=== PATIENT | male | born 1950 | race Caucasian/White ===

== ENCOUNTER 2017-04-15 16:16 | Emergency (ER) | payer MEDICARE, BC ==
[~2017-04-15 16:16] MED LIST: *UNABLE1; AT25 PO; ATARAX50B PO; ATV1 PO; B1100 PO; BEN25 PO; CAT1 PO; CHOLECALCIFEROL; COLCH6 PO; CONSTULOSE PO; D 5000 PO; DOX10 PO; DOXEPIN; DURICEF PO; FLOMAX4 PO; HYDROXYZINE; K500 PO; KLOR-CON 1010 MEQ PO; KLOR-CON M2020 MEQ PO; L10 PO; L20 PO; LACT30UDL PO; LACTULOSE; LEVOTHYROXIN50 MCG PO; LORAZEPAM; MAGNESIUM OXIDE; MAGOX4 PO; NAP500 PO; OMEPRAZOLE; PRILO PO; PRILOSEC40 MG PO; PRIN10 PO; SEROQUEL25 PO; SEROQUEL400 MG PO; SYN.05 PO; THIAMINE; TRAZ100 PO; TRAZODONE150 MG PO; TRIAMCINOLONE O80 GM TOP; VIST50 PO; VITAMIN B-1; VITAMIN B-1 100MG PO; Z100 PO; ZESTRIL20 MG PO; ZONEGRAN PO
[2017-04-15 17:38] LABS: BASOPHILS 0.3 %; BASOPHILS ABSOLUTE 0.01 10/3/uL (0.0-0.16); EOSINOPHILS 6.1 %; EOSINOPHILS ABSOLUTE 0.19 10/3/uL (0.0-0.53); HEMOGLOBIN 12.7 g/dL (13.6-17.8); IMMATURE GRANULOCYTES ABSOLUTE 0.03 10/3/uL (0.0-0.11); LYMPHOCYTES 29.2 %; LYMPHOCYTES ABSOLUTE 0.91 10/3/uL (0.67-4.30); MEAN CORPUSCULAR HEMOGLOB 31.7 pg (26.0-34.0); MEAN PLATELET VOLUME 8.9 fL (9.2-13.0); MONOCYTES 9.3 %; MONOCYTES ABSOLUTE 0.29 10/3/uL (0.21-1.20); NEUTROPHILS 54.1 %; NEUTROPHILS ABSOLUTE 1.69 10/3/uL (2.02-8.40); RBC DISTRIBUTION WIDTH 13.8 % (12.0-16.0); RED CELL COUNT 4.01 10/6/uL (4.7-6.1)
[2017-04-15 17:45] LABS: INTERNATIONAL NORMAL RATI 1.3 UNITS (-); PARTIAL THROMBO TIME 28.7 SEC (22.5-37.2); PROTIME (NOT ORD) 15.6 SEC (12.0-14.5)
[2017-04-15 17:46] LABS: ER CBC TAT 0 Hrs 15 Mins; HEMATOCRIT 35.3 % (40.0-51.0); PLATELET COUNT 57 10/3/uL (150-400); WHITE BLOOD CELLS 3.1 10/3/uL (4.5-10.5)
[2017-04-15 17:48] LABS: MANUAL DIFF NO %
[2017-04-15 17:53] LABS: CHEST PAIN PROFILE TAT 0 Hrs 22 Mins; CHLORIDE, SERUM 102 MMOL/L (96-112); CREATININE 0.84 MG/DL (0.70-1.30); GFR AFRICAN AMERICAN 106 ML/MIN (>=60); GFR NON AFRICAN AMERICAN 91 ML/MIN (>=60); POTASSIUM, SERUM 3.5 MMOL/L (3.5-5.3); TROPONIN I <0.02 NG/ML (<0.05)
[2017-04-15 17:54] LABS: BUN (BLOOD UREA NITROGEN) 6 MG/DL (6-23); CALCIUM, SERUM 8.1 MG/DL (8.5-10.4); CO2 (CARBON DIOXIDE) 30 MMOL/L (24-34); GLUCOSE, SERUM 138 MG/DL (60-99); SODIUM, SERUM 142 MMOL/L (135-148)
[2017-04-15 17:55] LABS: PLATELET ESTIMATE DEC (ADEQUATE); RBC MORPHOLOGY NORM (NORMAL)
== END 2017-04-15 20:02 | disposition home or self-care (01) ==
LOC: ER 16:16
PROVIDERS: Physician Assistant
DX: L03.116 Cellulitis of left lower limb (principal); D69.6 Thrombocytopenia, unspecified; F10.10 Alcohol abuse, uncomplicated; Z79.899 Other long term (current) drug therapy
CPT/HCPCS: 71010; 80048; 83690; 83735; 83880; 84484; 85025; 85610; 85730; 87040; 93005; 93970; 99284